=== PATIENT | female | born 2000 | race American Indian/Alaskan Native ===

== ENCOUNTER 2020-08-19 11:45 | Emergency (ER) | payer SELFPAY ==
[2020-08-19 12:09] VITALS: BP 109/69
--- NOTE | 2020-08-19 15:04 | Emergency Department Report ---
ED Back Pain/Injury HPI - General Chief Complaint: Skin/Abscess/Foreign Body Stated Complaint: BACK PAIN Time Seen by Provider: 08/19/20 13:01 Source: patient Limitations: No Limitations - History of Present Illness Initial Comments: Patient is a 20-year-old female presents emergency room complaints of lower back pain that began 2 weeks ago. She denies any fall or injury. She denies any fever, nausea, vomiting, diarrhea, chills, urinary symptoms, numbness, weakness, bowel or bladder incontinence. She states that 2 weeks ago she went to the emergency department in [facility] and reports that she had labs and a CT scan at that done at that time. She reports that she was referred to a general surgeon but came back to [place] and never followed up. She states that she believes she was told she had an "abscess" but did not stay in the hospital and was not sent home on any antibiotics. It appears patient is not really sure what her diagnosis was and does not have her paperwork with her. She has a past medical history of scoliosis. No allergies medications. Last menstrual cycle last month, she denies any possibility . - Related Data Allergies Allergy/AdvReac Type Severity Reaction Status Date / Time No Known Allergies Allergy Unverified 08/19/20 12:03 ED Review of Systems ROS: Stated complaint: BACK PAIN Other details as noted in HPI Comment: All other systems reviewed and negative ED Past Medical Hx - Past Medical History Previous Medical History?: Yes Additional medical history: SCO - Surgical History Past Surgical History?: No - Social History Smoking Status: Current Some Day Smoker Substance Use Type: None ED Physical Exam - General Limitations: No Limitations General appearance: alert, in no apparent distress - Head Head exam: Present: atraumatic, normocephalic - Eye Eye exam: Present: normal appearance - ENT ENT exam: Present: mucous membranes moist - Neck Neck exam: Present: normal inspection, full ROM. Absent: tenderness - Respiratory Respiratory exam: Present: normal lung sounds bilaterally. Absent: respiratory distress, wheezes, rales, rhonchi, stridor, chest wall tenderness, accessory muscle use, decreased breath sounds, prolonged expiratory - Cardiovascular Cardiovascular Exam: Present: regular rate, normal rhythm, normal heart sounds. Absent: systolic murmur, diastolic murmur, gallop - Back Exam Back exam: Present: normal inspection, full ROM, vertebral tenderness (mildine lumbar ttp, no step offs, no deformity, there is a 3 cm region of swelling, no fluctuance, no erythema, no increased warmth, she has FROM). Absent: paraspinal tenderness - Neurological Exam Neurological exam: Present: alert, oriented X3, CN II-XII intact, normal gait. Absent: motor sensory deficit - Psychiatric Psychiatric exam: Present: normal affect, normal mood - Skin Skin exam: Present: warm, dry, intact ED Course Vital Signs 08/19/20 12:08 Temperature 98.0 F Pulse Rate 56 L Respiratory 18 Rate Blood Pressure 109/69 O2 Sat by Pulse 98 Oximetry ED Medical Decision Making - Medical Decision Making Patient is a 20-year-old female presents emergency room complaints of lower back pain that began 2 weeks ago. She denies any fall or injury. She denies any fever, nausea, vomiting, diarrhea, chills, urinary symptoms, numbness, weakness, bowel or bladder incontinence. She states that 2 weeks ago she went to the emergency department in [facility] and reports that she had labs and a CT scan at that done at that time. She reports that she was referred to a general surgeon but came back to [place] and never followed up. She states that she believes she was told she had an "abscess" but did not stay in the hospital and was not sent home on any antibiotics. It appears patient is not really sure what her diagnosis was and does not have her paperwork with her. She has a past medical history of scoliosis. No allergies medications. Last menstrual cycle last month, she denies any possibility . Vitals are normal. On exam:mildine lumbar ttp, no step offs, no deformity, there is a 3 cm region of swelling, no fluctuance, no erythema, no increased warmth, she has FROM, no focal neuro deficits. She has no clinical signs of cellulitis or abscess. Patient evaluated by Dr. Haskins, ER attending who also agrees he does not appear to be infectious. Ordered for patient to have a CT lumbar spine without contrast, patient was agreeable with plan. CT attempted to call patient and it appears she has eloped from the emergency department prior to a complete medical examination. Critical care attestation.: If time is entered above; I have spent that time in minutes in the direct care of this critically ill patient, excluding procedure time. ED Disposition Clinical Impression: Low back pain Qualifiers: Chronicity: acute Back pain laterality: midline Sciatica presence: without sciatica Qualified Code(s): M54.5 - Low back pain Disposition: ELOPED Is pt being admited?: No Does the pt Need Aspirin: No Condition: Undetermined Referrals: PRIMARY CARE,MD [Primary Care Provider] - 3-5 Days
== END 2020-08-19 16:33 | disposition left against medical advice (07) ==
LOC: ED 11:45
DX: M54.5 Low back pain (principal); F17.200 Nicotine dependence, unspecified, uncomplicated
CPT/HCPCS: 99281